=== PATIENT | female | born 1960 | race Caucasian/White ===

== ENCOUNTER 2016-09-04 14:45 | Emergency (ER) | payer MEDICARE, MEDICAID ==
[2016-09-04] MEDS ORDERED: MIDAZOLAM 2 MG/2 ML INJ IV ONE (15:09)
[2016-09-04] MEDS ORDERED: PROPOFOL INJ 200 MG/20 ML VIAL IV ONE (15:09)
--- NOTE | 2016-09-04 15:10 | ER Document Report ---
ED Resuscitation - General Stated Complaint: CARDIAC ARREST Time Seen by Provider: 09/04/16 14:51 Mode of Arrival: Medic Information source: Emergency Med Personnel Cannot obtain history due to: Intubated Notes: This is a 55-year-old female status post partial small bowel obstruction who presents post cardiac arrest. History of the patient is intubated. Apparently she was released from [facility] in the last 24 hours. Per EMS report the patient became apneic and unresponsive and cyanotic in front of the family. EMS arrived and found the patient in asystole. CPR was performed and the patient given epinephrine as well as oral tracheal intubation performed. She had return of spontaneous circulation and upon arrival is in what appears to be normal sinus rhythm with a blood pressure of 163/88. TRAVEL OUTSIDE OF THE [place] IN LAST 30 DAYS: No - Related Data Allergies/Adverse Reactions: Penicillins Allergy (Severe, Verified 05/18/13 22:57) Anaphylaxis Past Medical History - Social History Smoking Status: Never Smoker Family History: Reviewed & Not Pertinent - Past Medical History Cardiac Medical History: Reports: Hx Hypertension, Hx Heart Murmur Pulmonary Medical History: Reports: Hx Tuberculosis Neurological Medical History: Denies: Hx Seizures Endocrine Medical History: Reports: Hx Diabetes Mellitus Type 1, Hx Diabetes Mellitus Type 2 Psychiatric Medical History: Denies: Hx Depression Past Surgical History: Reports: Hx Appendectomy, Hx Hysterectomy. Denies: Hx Pacemaker - Immunizations Hx Diphtheria, Pertussis, Tetanus Vaccination: Yes Hx Pneumococcal Vaccination: 06/03/11 Review of Systems - Review of Systems -: Yes ROS unobtainable due to patient's medical condition - Intubated Physical Exam - Vital signs Vitals: Resp Pulse Ox 13 95 09/04/16 14:45 09/04/16 14:45 - Notes Notes: GENERAL: VS as per nursing doc. pitcher 94.7F. Patient unresponsive and intubated with bag valve mask. HEAD: Atraumatic, normocephalic. EYES: Left cornea opacified consistent with her history of blindness, right pupil 2 mm and poorly reactive, sclera anicteric, no conjunctival injection or discharge. ENT: Nasal trumpet is in place as is an endotracheal tube secured. NECK: No obvious deformity. LUNGS: Right mainstem intubation as minimal breath sounds on left compared to right. Coarse it improved with withdrawal of endotracheal tube by 2 cm HEART: Regular rate and rhythm without murmurs. Symmetrical pulses ABDOMEN: Slightly firm, incision without signs of infection. EXTREMITIES: 2-3+ pitting edema of the extremities bilaterally. Left intraosseous in place. NEUROLOGICAL: Unresponsive to tactile stimuli PSYCH: Totally unresponsive SKIN: Warm, dry, abrasion across chest Course - Re-evaluation Re-evalutation: 09/04/16 16:20 Speaking with family the patient had her surgery which is a partial right hemicolectomy done for stage I colon cancer 6 days ago. Is autistic and does not give notice of pain or discomfort usually. The endotracheal tube is in the right mainstem bronchi by initial evaluation and was pulled back. On CT still at the right side at the level of about the alyson so it was removed somewhat. Her initial troponin is slightly elevated which is not surprising. ABG is pending at this point. We will treat her potassium based on her pH and consideration of another BMP. Been hemodynamically stable to this point here and actually required sedation as she was fighting the ventilator. 09/04/16 16:[address] Story and he felt the patient needed transfer back to [facility]. Discussed with [facility] transfer center and they will call me back. 09/04/16 18:[address] Law from the ICU who recommended increasing the rate to 20, as well proceed with D5 water with 3 A of sodium bicarb due to the hyperkalemia. We have been having difficulty getting blood. I just performed a femoral stick for the blood gas as well as a repeat Chem-7. We will give her another bolus of insulin as well as D50 as well. We do not have ROSC hypothermia protocol here or equipment. So patient has been packed with ice packs at this point. 09/04/16 18:04 I have further discussed with family and they would prefer transfer her back to [facility] as she just left there today after having surgery this week. They understand and are aware of risks. The echocardiogram is still not read at this point. 09/04/16 19:36 Patient was reevaluated. Heart rate is remaining approximately 60. Labs were reviewed. Breath sounds are equal. BP's continue to remain stable. - Vital Signs Vital signs: Temp Pulse Resp BP Pulse Ox 20 131/80 H 100 09/04/16 19:21 09/04/16 19:21 09/04/16 19:21 - Laboratory Result Diagrams: 09/04/16 15:05 09/04/16 15:05 Laboratory results interpreted by me: 09/04/16 09/04/16 09/04/16 15:05 15:05 15:05 Hgb 11.0 L Hct 35.9 L MCHC 30.8 L RDW 16.3 H Band Neutrophils % 8 H Metamyelocytes % 3 H Myelocytes % 3 H Immature Leukocytes % 1 H PT 16.7 H Carbonic Acid ABG pCO2 ABG HCO3 ABG Total CO2 Sodium 134.2 L Potassium 6.3 H* Carbon Dioxide 16 L BUN 42 H Creatinine 2.26 H Est GFR ( Amer) 27 L Est GFR (Non-Af Amer) 23 L Glucose 378 H Calcium 7.7 L Direct Bilirubin 0.7 H AST 64 H Alkaline Phosphatase 156 H Total Protein 5.8 L Albumin 2.5 L Urine Protein Urine Glucose (UA) Urine Blood 09/04/16 09/04/16 15:58 18:25 Hgb Hct MCHC RDW Band Neutrophils % Metamyelocytes % Myelocytes % Immature Leukocytes % PT Carbonic Acid 0.83 L ABG pCO2 27.6 L ABG HCO3 16.1 L ABG Total CO2 16.9 L Sodium Potassium Carbon Dioxide BUN Creatinine Est GFR ( Amer) Est GFR (Non-Af Amer) Glucose Calcium Direct Bilirubin AST Alkaline Phosphatase Total Protein Albumin Urine Protein >=500 H Urine Glucose (UA) 50 H Urine Blood MODERATE H - Diagnostic Test Radiology reviewed: Image reviewed - Endotracheal and trach tube in place. Slight prominence of the perihilar regions are noted. - EKG Interpretation by Me EKG shows normal: Sinus rhythm - Rate apparently approximately 75 as there is severe artifact limiting on multiple EKGs I do not see any clear ST current showing injury. Critical Care Note - Critical Care Note Total time excluding time spent on procedures (mins): 40 Discharge - Discharge Clinical Impression: Cardiopulmonary arrest with successful resuscitation Condition: Critical Disposition: [facility] Referrals: MOHIT RIDLEY FNP [Primary Care Provider] - Follow up as needed
[2016-09-04] MEDS ORDERED: PROPOFOL 100 ML IV ONE ×2 (15:11→18:14)
[2016-09-04] MEDS ORDERED: MIDAZOLAM 2 MG/2 ML INJ ONE (15:11)
[2016-09-04 15:21] LABS: HEMATOCRIT 35.9 % (36.0-47.0); HGB HCT DIFFERENCE -2.9; MEAN CORPUSCULAR HEMOGLOBIN 29.6 pg (27.0-33.4); MEAN CORPUSCULAR HGB CONC 30.8 g/dL (32.0-36.0); MEAN CORPUSCULAR VOLUME 96 fl (80-97); RED BLOOD COUNT 3.73 10^6/uL (3.72-5.28); RED CELL DISTRIBUTION WIDTH 16.3 % (11.5-14.0)
[2016-09-04 15:27] LABS: PROTHROMBIN TIME 16.7 SEC (11.4-15.4)
[2016-09-04 15:45] LABS: ALANINE AMINOTRANSFERASE 34 U/L (9-52); ALBUMIN 2.5 g/dL (3.5-5.0); ALKALINE PHOSPHATASE 156 U/L (38-126); ANION GAP 11 (5-19); ASPARTATE AMINO TRANSFERASE 64 U/L (14-36); BILIRUBIN,DIRECT 0.7 mg/dL (0.0-0.4); BILIRUBIN,TOTAL 0.9 mg/dL (0.2-1.3); BLOOD UREA NITROGEN 42 mg/dL (7-20); CALCIUM 7.7 mg/dL (8.4-10.2); CARBON DIOXIDE 16 mmol/L (22-30); CHLORIDE 107 mmol/L (98-107); CREATININE RESULT 2.26 mg/dL (0.52-1.25); GLUCOSE 378 mg/dL (75-110); SODIUM 134.2 mmol/L (137-145); TOTAL PROTEIN 5.8 g/dL (6.3-8.2)
[2016-09-04 15:49] LABS: POTASSIUM 6.3 mmol/L (3.6-5.0)
[2016-09-04] MEDS ORDERED: NORMAL SALINE 1000 ML 1,000 ML IV ONE (15:52)
[2016-09-04 16:03] LABS: BAND NEUTROPHILS % (MANUAL) 8 % (3-5); BASOPHILS % (MANUAL) 1 % (0-2); EOSINOPHILS % (MANUAL) 1 % (0-6); LYMPHOCYTES % (MANUAL) 14 % (13-45); TOTAL CELLS COUNTED 100
[2016-09-04 16:04] LABS: ANISOCYTOSIS 1+; POLYCHROMASIA SLIGHT
--- NOTE | 2016-09-04 16:09 | RADIOLOGY REPORT (SQ) ---
EXAM DESCRIPTION: CTA CHEST COMPLETED DATE/TIME: 09/04/2016 3:48 pm REASON FOR STUDY: Post surg cardiac arrest. COMPARISON: None. TECHNIQUE: CT scan of the chest performed using helical scanning technique with dynamic intravenous contrast injection. Images reviewed with lung, soft tissue and bone windows. Reconstructed coronal and sagittal MPR images reviewed. Additional 3 dimensional post-processing performed to develop Maximal Intensity Projection images (TX P). All images stored on PACS. All CT scanners at this facility use dose modulation, iterative reconstruction, and/or weight based d osing when appropriate to reduce radiation dose to as low as reasonably achievable (ALARA). [facility]: Dose Right [facility]: CareDose [facility]: Dose Right [facility]: Teradose 4D [facility]: Verical CONTRAST TYPE AND DOSE: 100 mL Isovue 370- low osmolar. RENAL FUNCTION: Not available. RADIATION DOSE: 48.75 mGy. LIMITATIONS: None. FINDINGS: LUNGS AND PLEURA: There is considerable airspace opacification in the posterior aspect of the right upper lobe and in the medial posterior aspect of the left upper lobe. There is opacificati on in left lower lobe posteriorly and to a mild degree in the right lower lobe posterior. AORTA AND GREAT VESSELS: No aneurysm or dissection. HEART: No pericardial effusion. PULMONARY ARTERIES: No emboli visualized in the main pulmonary arteries or the segmental branches. HILAR AND MEDIASTINAL STRUCTURES: No identified masses or abnormal nodes. HARDWARE: An endotracheal tube is present. The tip of the tube is at the origin of the right mainste m bronchus. An NG tube extends into the abdomen. UPPER ABDOMEN: See separate report of the CT of the abdomen. THYROID AND OTHER SOFT TISSUES: No masses. No adenopathy. BONES: No acute abnormality. 3D MIPS: Confirm above findings. OTHER: No other significant finding. IMPRESSION: 1. There is no evidence of pulmonary embolus. 2. The endotracheal tube has its tip at the origin of the right mainstem bronchus, but not in the ri ght mainstem bronchus. 3. Infiltrate versus atelectasis in upper lobes and lower lobes. TECHNICAL DOCUMENTATION: JOB ID: [id number] Quality ID # [id number]: Final reports with documentation of one or more dose reduction techniques (e.g., Au tomated exposure control, adjustment of the mA and/or kV according to patient size, use of iterative reconstruction technique) 2010 [employer]- All Rights Reserved
[2016-09-04 16:16] LABS: APPEARANCE,URINE SLIGHTLY-CLOUDY; BILIRUBIN,URINE NEGATIVE (NEGATIVE); GLUCOSE, URINE 50 mg/dL (NEGATIVE); KETONES,URINE NEGATIVE (NEGATIVE); PROTEIN,URINE >=500 mg/dL (NEGATIVE); URINE SPECIFIC GRAVITY 1.021
[2016-09-04 16:17] LABS: BACTERIA,URINE 4+ /HPF; LEUKOCYTE ESTERASE,URINE NEGATIVE (NEGATIVE); NITRITE,URINE NEGATIVE (NEGATIVE); UROBILINOGEN,URINE NEGATIVE mg/dL (<2.0)
--- NOTE | 2016-09-04 16:19 | RADIOLOGY REPORT (SQ) ---
EXAM DESCRIPTION: CT ABD/PELVIS WITH IV ONLY COMPLETED DATE/TIME: 09/04/2016 3:48 pm REASON FOR STUDY: Post abd surg arrest COMPARISON: None. TECHNIQUE: CT scan of the abdomen and pelvis performed using helical scanning technique with dynamic intravenous contrast injection. No oral contrast. Images reviewed with lung, soft tissue, and bone windows. Reconstructed coronal and sagittal MPR images reviewed. Delayed images for evaluation of the urinary system also acquired. All images stored on PACS. All CT scanners at this facility use dose modulation, iterative reconstruction, and/or weight based d osing when appropriate to reduce radiation dose to as low as reasonably achievable (ALARA). [facility]: Dose Right [facility]: CareDose [facility]: Dose Right [facility]: Teradose 4D [facility]: Adept Cloud CONTRAST TYPE AND DOSE: 100mL Isovue 370- low osmolar. RENAL FUNCTION: Not obtained prior to scan at request of ordering clinician. RADIATION DOSE: 66.86mGy. LIMITATIONS: None. FINDINGS: LOWER CHEST: See separate report of the CT of the chest. LIVER: Normal size. No masses or dilated ducts. SPLEEN: Normal size. No focal lesions. PANCREAS: No masses. No significant calcifications. No adjacent inflammation or peripancreatic fluid collections. Pancreatic duct not dilated. GALLBLADDER: No identified stones by CT criteria. No inflammatory changes to suggest cholecystitis. ADRENAL GLANDS: No significant masses or asymmetry. RIGHT KIDNEY AND URETER: No solid masses. No significant calcifications. No hydronephrosis or hyd roureter. LEFT KIDNEY AND URETER: No solid masses. No significant calcifications. No hydronephrosis or hydr oureter. AORTA AND VESSELS: No aneurysm. No dissection. Renal arteries, SMA, celiac without stenosis. RETROPERITONEUM: No retroperitoneal adenopathy, hemorrhage or masses. BOWEL AND PERITONEAL CAVITY: Pneumoperitoneum. Ventral midline skin addy. Small amount of ascite s. Anastomosis status post right hemicolectomy. No evidence of obstruction. No pneumatosis. APPENDIX: Surgically absent. PELVIS: Free fluid right lower quadrant measuring about 12 HU. ABDOMINAL WALL: Body wall edema. BONES: No acute findings. OTHER: Nasogastric tube in the stomach. IMPRESSION: 1. Pneumoperitoneum and ascites status post recent right hemicolectomy. No evidence of hemorrhage, a bscess or bowel obstruction. TECHNICAL DOCUMENTATION: JOB ID: [id number] Quality ID # [id number]: Final reports with documentation of one or more dose reduction techniques (e.g., Au tomated exposure control, adjustment of the mA and/or kV according to patient size, use of iterative reconstruction technique) 2010 [employer]- All Rights Reserved
[2016-09-04] MEDS ORDERED: INSULIN REG, HUMAN 100 UNIT/ML 3 ML VIAL (PYX) IV ONE ×2 (16:59→17:47)
[2016-09-04] MEDS ORDERED: DEXTROSE 5%-WATER 1000 ML 1,000 ML with SODIUM BICARBONATE 150 ML IV ONE ×2 (17:43)
--- NOTE | 2016-09-04 17:45 | RADIOLOGY REPORT (SQ) ---
EXAM DESCRIPTION: CHEST SINGLE VIEW COMPLETED DATE/TIME: 09/04/2016 5:15 pm REASON FOR STUDY: ETT placement COMPARISON: 05/29/2013. EXAM PARAMETERS: NUMBER OF VIEWS: One view. TECHNIQUE: Single frontal radiographic view of the chest acquired. RADIATION DOSE: NA LIMITATIONS: None. FINDINGS: LUNGS AND PLEURA: Patchy airspace disease in both lungs. No large pleural effusion. No p neumothorax. MEDIASTINUM AND HILAR STRUCTURES: No masses. Contour normal. HEART AND VASCULAR STRUCTURES: Cardiomegaly. BONES: No acute findings. HARDWARE: Tip of the endotracheal tube located 2.5 cm proximal to the alyson. Nasogastric tube with the tip in the stomach. OTHER: No other significant finding. IMPRESSION: 1. ENDOTRACHEAL TUBE AND NASOGASTRIC TUBE APPEAR TO BE IN APPROPRIATE POSITION. 2. CARDIOMEGALY WITH PATCHY AIRSPACE DISEASE. POSSIBLE ETIOLOGIES INCLUDE ATELECTASIS, PNEUMONIA, OR ASYMMETRIC PULMONARY EDEMA. TECHNICAL DOCUMENTATION: JOB ID: [id number]
[2016-09-04] MEDS ORDERED: DEXTROSE 50%-WATER 25 GM/50 ML DISP.SYRIN IV ONE (17:47)
[2016-09-04] MEDS ORDERED: SODIUM BICARBONATE 8.4% INJ 50 MEQ/50 ML DISP.SYRIN ONE (17:48)
[2016-09-04 18:41] LABS: ARTERIAL BLOOD BASE EXCESS -7.6 mmol/L; ARTERIAL BLOOD O2 SATURATION 97.3 % (94-98)
[2016-09-04 19:24] VITALS: BP 131/80
--- NOTE | 2016-09-04 19:30 | XCELERA REPORT ---
[address] [address] Transthoracic Echocardiogram Report Name: DARNELL LOPEZ Age: 55 yrs Gender: Female : 1960 Patient Status: Emergency Patient Location: ER Study Date: 09/04/2016 03:15 PM Procedure: A complete two-dimensional transthoracic echocardiogram was performed (2D, M-mode, spectral and color flow Doppler). The study was technically adequate with some images being suboptimal in quality. Reason For Study: post Cardiac Arrest Ordering Physician: MAICO MOLINA Performed By: Anatoliy Brenner Interpretation Summary The left ventricular ejection fraction is normal. Doppler measurements suggest pseudonormalized left ventricular relaxation, which is associated with grade II/IV or mild to moderate diastolic dysfunction There is mild concentric left ventricular hypertrophy. The left ventricle is grossly normal size. Wall motion cannot be accurately commented on, but no definite regional wall motion abnormalities noted. The right ventricle appears to be hypertrophied The right ventricle is moderately dilated. The right ventricular systolic function is mildly reduced. The right atrium is moderate to severely dilated. The left atrium is moderately dilated. There is a mild amount of mitral regurgitation There is no mitral valve stenosis. No aortic regurgitation is present. There is no aortic valve stenosis There is a moderate to severe amount of tricuspid regurgitation There is servere pulmonary hypertension by echo Right ventricular systolic pressure is estimated to be elevated at >60mmHg. The aortic root is not well visualized. The inferior vena cava appeared normal and decreased < 50% with respiration (RAP 10-15 mmHg) There is no pericardial effusion. MMode/2D Measurements \T\ Calculations RVDd: 3.7 cm LVIDd: 4.9 cm FS: 42.6 % Ao root diam: 2.8 cm IVSd: 1.1 cm LVIDs: 2.8 cm EDV(Teich): 112.0 ml Ao root area: 6.3 cm2 LVPWd: 1.1 cm ESV(Teich): 29.6 ml EF(Teich): 73.6 % Doppler Measurements \T\ Calculations MV E max matt: MV dec slope: Ao V2 max: LV V1 max P.1 cm/sec 377.1 cm/sec2 99.3 cm/sec 2.7 mmHg MV A max matt: MV dec time: Ao max PG: LV V1 max: 42.6 cm/sec 0.21 sec 3.9 mmHg 82.7 cm/sec MV E/A: 1.9 MR max matt: PA V2 max: PI end-d matt: TR max matt: 420.2 cm/sec 80.4 cm/sec 134.6 cm/sec 358.3 cm/sec MR max PG: PA max P.6 mmHg TR max P.6 mmHg 51.8 mmHg RVSP(TR): 56.8 mmHg RAP systole: 5.0 mmHg Left Ventricle The left ventricle is grossly normal size. There is mild concentric left ventricular hypertrophy. The left ventricular ejection fraction is normal. Doppler measurements suggest pseudonormalized left ventricular relaxation, which is associated with grade II/IV or mild to moderate diastolic dysfunction. Wall motion cannot be accurately commented on, but no definite regional wall motion abnormalities noted. Right Ventricle The right ventricle is moderately dilated. The right ventricle appears to be hypertrophied. The right ventricular systolic function is mildly reduced. Atria The right atrium is moderate to severely dilated. The left atrium is moderately dilated. Interarterial septum not well visualized and not well dopplered. Cannot comment on ASD/PFO presence. Mitral Valve The mitral valve is grossly normal. There is no mitral valve stenosis. There is a mild amount of mitral regurgitation. Aortic Valve The aortic valve is grossly normal. There is no aortic valve stenosis. No aortic regurgitation is present. Tricuspid Valve The tricuspid valve is not well visualized, but is grossly normal. There is no tricuspid stenosis. There is a moderate to severe amount of tricuspid regurgitation. There is servere pulmonary hypertension by echo. Right ventricular systolic pressure is estimated to be elevated at >60mmHg. Pulmonic Valve The pulmonic valve is not well visualized. There is a mild amount of pulmonic regurgitation. Great Vessels The aortic root is not well visualized. The inferior vena cava appeared normal and decreased < 50% with respiration (RAP 10-15 mmHg). Effusions There is no pericardial effusion. : MAICO MOLINA > Den Quick
--- NOTE | 2016-09-05 10:59 | EKG REPORT ---
SEVERITY:- DEFECTIVE ECG - DEFECTIVE EKG .REPEAT EKG : Confirmed by: Dee Armas MD 05-Sep-2016 10:59:06
--- NOTE | 2016-09-05 11:00 | EKG REPORT ---
SEVERITY:- DEFECTIVE ECG - DEFECTIVE EKG REPEAT : Confirmed by: Dee Armas MD 05-Sep-2016 11:00:05
[2016-09-05 14:42] LABS: PATH REVIEW PATHOLOGIST REVIEWED
== END 2016-09-04 20:13 | disposition short-term general hospital (02) ==
LOC: ER 14:45
DX: I46.9 Cardiac arrest, cause unspecified (principal); I10 Essential (primary) hypertension; E11.9 Type 2 diabetes mellitus without complications; E87.5 Hyperkalemia; C18.9 Malignant neoplasm of colon, unspecified; Z86.11 Personal history of tuberculosis; Z90.710 Acquired absence of both cervix and uterus; Z88.0 Allergy status to penicillin
CPT/HCPCS: 93005; 99285; 92950; 51702; 96365; 36415; 87086; 82803; 85025; 85610; 80053; 81001; 84484; 93306; 71010; 71275; 74177; 93010; J2250; J2704 ×2; A9270; J7030; 94002; J1815